=== PATIENT | female | born 1995 | race African-American/Black ===

== ENCOUNTER 2016-10-05 12:59 | Emergency (ER) | payer OTHER, SELFPAY | END 2016-10-05 13:50 | disposition home or self-care (01) | LOC: MADERS 12:59 | DX: B86 Scabies (principal); J45.909 Unspecified asthma, uncomplicated | CPT/HCPCS: 99282 ==

== ENCOUNTER 2016-12-04 07:11 | Emergency (ER) | payer MEDICAID ==
[2016-12-04] MEDS ORDERED: predniSONE 20 MG TAB ONE (07:48)
== END 2016-12-04 08:00 | disposition home or self-care (01) ==
LOC: MADERS 07:11
DX: R21 Rash and other nonspecific skin eruption (principal); J45.909 Unspecified asthma, uncomplicated; M41.9 Scoliosis, unspecified
CPT/HCPCS: 99283; J7506

== ENCOUNTER 2017-08-21 16:38 | Emergency (ER) | payer SELFPAY ==
[2017-08-21] MEDS ORDERED: Oseltamivir 75 MG CAP ONE (17:01)
[2017-08-21] MEDS ORDERED: Acetaminophen 500 MG TAB ONE (17:01)
[2017-08-21] MEDS ORDERED: Ibuprofen 800 MG TAB ONE (17:01)
[2017-08-21] MEDS ORDERED: Benzonatate 100 MG CAP ONE (17:15)
[2017-08-21] MEDS ORDERED: HYDROcodone/Acetaminophen 5/325 mg Tablet ONE (17:15)
== END 2017-08-21 17:25 | disposition home or self-care (01) ==
LOC: MADERS 16:38
DX: J11.1 Influenza due to unidentified influenza virus with other respiratory manifestations (principal); J45.909 Unspecified asthma, uncomplicated; M41.9 Scoliosis, unspecified; M62.9 Disorder of muscle, unspecified; J98.4 Other disorders of lung
CPT/HCPCS: 99283

== ENCOUNTER 2017-12-18 19:26 | Emergency (ER) | payer SELFPAY | END 2017-12-18 20:32 | disposition left against medical advice (07) | LOC: MADERS 19:26 | DX: Z53.21 Procedure and treatment not carried out due to patient leaving prior to being seen by health care provider (principal) ==

== ENCOUNTER 2023-04-02 00:07 | Emergency (ER) | payer SELFPAY | END 2023-04-02 01:01 | disposition home or self-care (01) | LOC: MADERS 00:07 | DX: S63.92XA Sprain of unspecified part of left wrist and hand, initial encounter (principal); F17.210 Nicotine dependence, cigarettes, uncomplicated; Y04.0XXA Assault by unarmed brawl or fight, initial encounter ==

== ENCOUNTER 2023-04-14 02:12 | Emergency (ER) | payer SELFPAY ==
[2023-04-14] MEDS ORDERED: Ondansetron PF 4 MG/2 ML Vial ONE (02:59)
[2023-04-14] MEDS ORDERED: Ketorolac Tromethamine 60 MG/2 ML VIAL ONE (02:59)
[2023-04-14] MEDS ORDERED: Ondansetron ODT 4 MG TAB ONE (03:00)
[2023-04-14] MEDS ORDERED: HYDROcodone/Acetaminophen 5/325 mg Tablet ONE (06:27)
== END 2023-04-14 08:12 | disposition home or self-care (01) ==
LOC: MADERS 02:12
DX: S06.0X0A Concussion without loss of consciousness, initial encounter (principal); F17.210 Nicotine dependence, cigarettes, uncomplicated; F17.290 Nicotine dependence, other tobacco product, uncomplicated; Y00.XXXA Assault by blunt object, initial encounter
CPT/HCPCS: 70450; 72125; 96372; J1885; J2405; Q0162

== ENCOUNTER 2023-09-01 10:21 | Emergency (ER) | payer SELFPAY ==
[2023-09-01] MEDS ORDERED: Acetaminophen 500 MG TAB ONE (11:02)
== END 2023-09-01 11:05 | disposition left against medical advice (07) ==
LOC: MADERS 10:21
DX: J02.9 Acute pharyngitis, unspecified (principal); F17.290 Nicotine dependence, other tobacco product, uncomplicated
CPT/HCPCS: 99283

== ENCOUNTER 2024-07-04 12:05 | Emergency (ER) | payer SELFPAY | END 2024-07-04 12:40 | disposition home or self-care (01) | LOC: MADERS 12:05 | DX: J02.9 Acute pharyngitis, unspecified (principal); F17.290 Nicotine dependence, other tobacco product, uncomplicated | CPT/HCPCS: 99282 ==